=== PATIENT | male | born 1945 | race Hispanic/Latino ===

== ENCOUNTER → 2017-12-18 | Outpatient (CLI) | payer MEDICARE ==
[~2017-12-18] MED LIST: CELEBREX100 MG PO; CODEINE SULFATE30 MG PO; DEXILANT60 MG PO; FINASTERIDE5 MG PO; FLOMAX0.4 MG PO; IBUPROFEN PO; LEVOTHYROXINE100 MC1 PO; LISINOPRIL10 MG PO; MECLIZINE HCL12.5 MG PO; METFORMIN HCL500 MG PO; NAPROXEN250 MG PO; NAPROXEN500 MG PO; OMEPRAZOLE20 MG PO; OMEPRAZOLE40 MG PO; PRAVASTATIN SOD40 MG PO; SYNTHROID100 MCG PO
--- NOTE | 2017-12-18 08:56 | Diagnostic Imaging Report ---
PROCEDURE: CT ABDOMEN AND PELVIS WITHOUT CONTRAST TECHNIQUE: The abdomen and pelvis were scanned utilizing a multidetector helical scanner from the diaphragm to the lesser trochanter. No oral contrast was administered. No IV contrast was administered per stone protocol. Coronal and sagittal multiplanar reformations were obtained. RADIATION DOSE: DLP 596 mGy-cm COMPARISON: CT Abdomen/Pelvis 06/23/15. INDICATIONS: RIGHT FLANK PAIN, POST FALL 3 WEEKS AGO. STONE ON OUTSIDE SCAN FINDINGS: ABSENCE OF INTRAVENOUS CONTRAST DECREASES SENSITIVITY FOR DETECTION OF FOCAL LESIONS AND VASCULAR PATHOLOGY. LOWER THORAX: Small right-sided Bochdalek hernia. Lung bases are clear. Coronary atherosclerosis. HEPATOBILIARY: No focal hepatic lesions. No biliary ductal dilatation. SPLEEN: No splenomegaly. PANCREAS: No focal masses or ductal dilatation. ADRENALS: No adrenal nodules. 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 As before, there are 2 adjacent 5-6 mm stones in the collecting system of the right moiety (series 3, image 75; >1000 HU suggestive of calcium stones). No evidence of left-sided stone. No evidence of ureteral or bladder stone. No evidence of hydronephrosis or mass lesion. PELVIC ORGANS/BLADDER: Prostatomegaly is again noted. PERITONEUM / RETROPERITONEUM: No free air or fluid. LYMPH NODES: No lymphadenopathy. VESSELS: Atherosclerotic calcifications of the abdominal aorta and branch vessels. GI TRACT: No distention or wall thickening. Normal appendix. BONES AND SOFT TISSUES: Degenerative changes are again noted. Fat containing right inguinal hernia. Post surgical changes in the left inguinal region, likely from prior repair. IMPRESSION: No acute findings in the abdomen or pelvis. Horseshoe kidney with similar appearance of 5-6 mm non-obstructing stones in the right sided moiety. No evidence of ureteral or bladder stone. Prostatomegaly without hydronephrosis. Dictated by: ALBIN PARADA M.D. on 12/18/2017 at 9:00 Electronically approved by: ALBIN PRAADA M.D. on 12/18/2017 at 9:00
== END ==
LOC: CT 07:39
PROVIDERS: ATTEND Urology
DX: N20.0 Calculus of kidney (principal)
CPT/HCPCS: 74176

== ENCOUNTER → 2018-01-22 | Outpatient (CLI) | payer MEDICARE ==
--- NOTE | 2018-01-22 15:47 | Diagnostic Imaging Report ---
EXAM: XR CHEST 2 VIEWS DATE: 01/22/2018 2:18 PM INDICATION: Pain COMPARISON: CT abdomen 12/18/2017 FINDINGS: Lines and Tubes: None Heart and Mediastinum: No acute cardiomediastinal findings. Mild aortic vascular calcifications present. Lungs and Pleura: Atelectasis lung bases. No pneumothorax or focal consolidation. Bones and Soft Tissues: Right lower rib fractures as seen on previous abdominal CT. IMPRESSION: 1. Subacute right rib fractures. 2. Atelectasis lung bases. Signed by: Dr. Flakito Joyce MD on 01/22/2018 3:44 PM
== END ==
LOC: RAD 14:13
PROVIDERS: ATTEND Internal Medicine
DX: R07.89 Other chest pain (principal); W18.39XA Other fall on same level, initial encounter
CPT/HCPCS: 71046

== ENCOUNTER 2018-02-08 01:41 | Emergency (ER) | payer MEDICARE ==
[~2018-02-08] VITALS: Ht 172.7 cm; Wt 84.4 kg
[2018-02-08] MEDS ORDERED: ACETAMINOPHEN 325 MG TAB PO ONE (02:00)
[2018-02-08] MEDS ORDERED: SODIUM CHLORIDE 0.9% 1000ML 1,000 ML IV ONE (02:00)
[2018-02-08 02:33] LABS: BASOPHILS % 0.3 % (0.0-1.0); EOSINOPHILS # (AUTO) 0.1 (0.0-0.4); EOSINOPHILS % 0.5 % (0.0-6.0); HEMOGLOBIN 14.4 g/dL (14.0-18.0); LYMPHOCYTES # (AUTO) 0.8 (1.0-3.2); LYMPHOCYTES % 6.2 % (18.0-39.1); MEAN CORPUSCULAR HEMOGLOBIN 30.5 pg (28-32); MEAN CORPUSCULAR HGB CONC 35.1 g/dL (31-35); MEAN CORPUSCULAR VOLUME 86.9 fL (81-99); MONOCYTES # (AUTO) 0.9 (0.2-0.8); MONOCYTES % 6.5 % (4.4-11.3); NEUTROPHILS # (AUTO) 11.4 (2.1-6.9); NEUTROPHILS % 86.2 % (38.7-80.0); PLATELET COUNT 155 x10e3/uL (140-360); RED BLOOD COUNT 4.72 x10e6/uL (4.3-5.7); RED CELL DISTRIBUTION WIDTH 12.5 % (11.7-14.4)
[2018-02-08 02:54] LABS: ALANINE AMINOTRANSFERASE 16 IU/L (0-55); ALBUMIN 4.2 g/dL (3.5-5.0); ALBUMIN/GLOBULIN RATIO 1.8 (0.8-2.0); ALKALINE PHOSPHATASE 56 IU/L (40-150); ANION GAP 16.1 mmol/L (8-16); BLOOD UREA NITROGEN 12 mg/dL (7-26); BUN/CREATININE RATIO 12 (6-25); CALCIUM 9.3 mg/dL (8.4-10.2); CARBON DIOXIDE 22 mmol/L (22-29); CHLORIDE 104 mmol/L (98-107); CREATININE, SERUM 0.98 mg/dL (0.72-1.25); EST GLOMERULAR FILTRATION RATE > 60 ML/MIN (60-); GLUCOSE 174 mg/dL (74-118); POTASSIUM 4.1 mmol/L (3.5-5.1); SODIUM 138 mmol/L (136-145)
[2018-02-08 03:15] LABS: CLARITY,URINE CLOUDY (CLEAR); COLOR,URINE AMBER (YELLOW)
[2018-02-08 03:16] LABS: BILIRUBIN,URINE 1+ (NEGATIVE); KETONES,URINE TRACE (NEGATIVE); LEUKOCYTE ESTERASE ,URINE 2+ (NEGATIVE); NITRITE,URINE POSITIVE (NEGATIVE); PROTEIN,URINE DIPSTICK 3+ (NEGATIVE); URINE UROBILINOGEN 4 mg/dL (0.2 - 1)
[2018-02-08 03:24] LABS: BACTERIA,URINE MANY /HPF; EPITHELIAL CELLS,URINE FEW /LPF; RBC,URINE >50 /HPF (0-5); WBC,URINE (MAN) >50 /HPF (0-5)
[2018-02-08 03:25] LABS: RENAL EPITHELIAL CELLS,URINE FEW
[2018-02-08] MEDS ORDERED: CEFTRIAXONE SOD 1 GM VIAL IV ONE (03:30)
--- NOTE | 2018-02-08 03:30 | Diagnostic Imaging Report ---
EXAM: CHEST SINGLE (PORTABLE), AP 1 view INDICATION: Urine color abnormal, pain in groin COMPARISON: PA and lateral view of the chest January 22, 2018 FINDINGS: LINES/TUBES: None LUNGS: No consolidations or edema. PLEURA: No effusions or pneumothorax. HEART AND MEDIASTINUM: Normal size and contour. BONES AND SOFT TISSUES: No acute findings. IMPRESSION: No acute thoracic abnormality. Signed by: Dr. Keri Ludwig M.D. on 02/08/2018 2:51 AM
[2018-02-08 03:44] VITALS: BP 119/69
== END 2018-02-08 03:53 | disposition home or self-care (01) ==
LOC: ER 01:41
DX: N30.91 Cystitis, unspecified with hematuria (principal); I10 Essential (primary) hypertension; E03.9 Hypothyroidism, unspecified; Z87.442 Personal history of urinary calculi
CPT/HCPCS: 36415; 71045; 80053; 81001; 83605; 85025; 87040; 87086; 87186; 99284; J0696; J7030

== ENCOUNTER 2018-02-10 19:05 | Emergency (ER) | payer MEDICARE ==
[~2018-02-10] VITALS: Ht 172.7 cm; Wt 84.4 kg
[2018-02-10] MEDS ORDERED: LIDOCAINE JELLY 2% 10ML URO-JET ONE (20:05)
[2018-02-10] MEDS ORDERED: LIDOCAINE JELLY 2% 10ML URO-JET TOP ONE (20:15)
[2018-02-10 20:33] LABS: BILIRUBIN,URINE NEGATIVE (NEGATIVE); CLARITY,URINE CLEAR (CLEAR); COLOR,URINE YELLOW (YELLOW); KETONES,URINE NEGATIVE (NEGATIVE); LEUKOCYTE ESTERASE ,URINE NEGATIVE (NEGATIVE); NITRITE,URINE NEGATIVE (NEGATIVE); PROTEIN,URINE DIPSTICK NEGATIVE (NEGATIVE); URINE UROBILINOGEN 0.2 mg/dL (0.2 - 1)
[2018-02-10 20:43] LABS: AMORPHOUS SEDIMENT,URINE FEW (FEW); BACTERIA,URINE FEW /HPF; EPITHELIAL CELLS,URINE FEW /LPF; TRANSITIONAL EPI CELLS,URINE RARE; WBC,URINE (MAN) 0-5 /HPF (0-5)
[2018-03-09] MEDS ORDERED: AMITIZA24 MCG PO (17:12)
[2018-03-09] MEDS ORDERED: AMARYL2 MG PO (17:12)
[2018-03-09] MEDS ORDERED: TYLENOL WITH C1 EACH PO (17:13)
[2018-03-09] MEDS ORDERED: LEVAQUIN500 MG PO (17:13)
--- OUTSIDE RECORDS SUMMARY | 2018-03-12 06:01 | XMS REPORT | Continuity of Care Document ---
Author Author [facility] Organization [facility] Address [address] [place] [address] Phone Unavailable Care Team Providers Care Reflow Operator Name Role Phone NETO YUNG MD PCP Insurance Providers Guarantor Aashish Huerta Address [address] [place] [address] Email NONE Payer Medicare A & B Policy Number [id number] Subscriber's Name Aashish Huerta Relationship 18 Self / Same As Patient Effective Date 12 Advance Directives Directive Response Recorded Date/Time Does the patient have an advance directive? No 08/03/15 2:02am If yes, is advance directive on file with [facility]? No 08/03/15 2:02am If not on file with [facility] will patient provide a copy? No 12/18/17 7:38am Do you have a Directive to Physician? No 02/08/18 2:06am Do you have a Medical Power of [employer]itness And Wellness Director? No 02/08/18 2:06am Do you have an out of hospital Do Not Resuscitate Order? No 02/08/18 2:06am Do you have any special needs we should be aware of? No 02/08/18 2:06am Do you have a support person here with you today? Yes 02/08/18 2:06am Did patient receive Notice of Privacy Practices? Yes 02/08/18 2:06am Did patient receive patient rights and responsibilities? Yes 02/08/18 2:06am Problems Medical Problem Onset Date Status Constipation 07/31/2015 Acute UTI (urinary tract infection) 07/31/2015 Acute Medications Current Home Medications Medication Dose Units Route Directions Days Qty Instructions Start Date Celecoxib (Celebrex*) 100 Mg Capsule 200 Mg Oral Daily 30 Cap Dexlansoprazole (Dexilant) 60 Mg Cap.mp 60 Mg Oral Daily THERAPEUTIC INTERCHANGE WITH PROTONIX PER [facility] Levothyroxine Sodium (Synthroid) 100 Mcg Tab 100 Mcg Oral Daily Lisinopril 10 Mg Tablet 10 Mg Oral Daily 30 Tab Meclizine Hcl 12.5 Mg Tablet 12.5 Mg Oral Daily as needed for Dizziness Omeprazole 20 Mg Capsule. 20 Mg Oral Twice A Day Pravastatin Sodium 40 Mg Tablet 40 Mg Oral Daily Tamsulosin Hcl (Flomax*) 0.4 Mg Cap 0.4 Mg Oral Bedtime 30 Cap Past Home Medications Medication Directions Ordered Status Codeine Sulfate 30 Mg Tab, 30 Mg Oral Daily Discontinued Finasteride 5 Mg Tablet, 5 Mg Oral Daily Discontinued Ibuprofen , 800 Mg Oral Three Times A Day Discontinued Levothyroxine Sodium 100 Mcg Vial, 100 Mcg Oral Daily Discontinued Metformin Hcl 500 Mg Tablet, 500 Mg Oral Twice A Day Discontinued Naproxen 500 Mg Tablet, 500 Mg Oral Twice A Day Discontinued Naproxen 250 Mg Tablet, 500 Mg Oral Twice A Day Discontinued Omeprazole 40 Mg Capsule.dr, 20 Mg Oral Twice A Day Discontinued Social History Social History Problem Response Recorded Date/Time Onset Date Status Hx Psychiatric Problems No 08/03/2015 2:02am Not Applicable Not Applicable Hx Eating Disorder No 08/03/2015 2:02am Not Applicable Not Applicable Hx Substance Use Disorder No 08/03/2015 2:02am Not Applicable Not Applicable Hx Depression No 08/03/2015 2:02am Not Applicable Not Applicable Hx Alcohol Use No 08/03/2015 2:02am Not Applicable Not Applicable Hx Substance Use Treatment No 08/03/2015 2:02am Not Applicable Not Applicable Hx Physical Abuse No 08/03/2015 2:02am Not Applicable Not Applicable Smoking Status Start Date Stop Date Never Smoker Hospital Discharge Instructions No hospital discharge instruction information available. Plan of Care Discharge Date 02/08/18 3:53am Disposition HOME, SELF-CARE Condition at Discharge Stable Instructions/Education Provided Hematuria - Male Urinary Tract Infection - Men Prescriptions See Medication Section Additional Instructions/Education ALTERNATE TYLENOL (ACETAMINOPHEN) AND MOTRIN (IBUPROFEN) FOR TEMPERATURE GREATER THAN 100.4 DEGREES ORALLY. TAKE ACCORDING TO LABEL INSTRUCTIONS. DRINK PLENTY OF FLUIDS. TAKE MEDICATIONS PRESCRIBED. FOLLOW UP WITH A UROLOGIST IN FOUR DAYS IF NOT BETTER. Functional Status No functional status information available. Allergies, Adverse Reactions, Alerts No known allergies. Immunizations No immunization information available. Vital Signs Acute Vital Signs Vital Response Date/Time Temperature (Fahrenheit) 98.9 degrees F (97.6 - 99.5) 02/08/2018 3:44am Pulse Pulse Rate (adult) 80 bpm (60 - 90) 02/08/2018 3:44am Respiratory Rate 18 bpm (12 - 24) 02/08/2018 3:44am Blood Pressure 119/69 mm Hg 02/08/2018 3:44am Height 5 ft 8 in 02/08/2018 1:54am Weight 186 lb 02/08/2018 1:54am Body Mass Index 28.3 kg/m^2 02/08/2018 1:54am Results Laboratory Results Test Name Result Units Flags Reference Collection Date/Time Result Date/ Time Comments White Blood Count 13.17 x10e3/uL H 4.8-10.8 02/08/2018 2:052017 2:34am Red Blood Count 4.72 x10e6/uL 4.3-5.7 02/08/2018 2:0502/08/2018 2: 34am Hemoglobin 14.4 g/dL 14.0-18.0 02/08/2018 2:0502/08/2018 2:34am Hematocrit 41.0 % 38.2-49.6 02/08/2018 2:0502/08/2018 2:34am Mean Corpuscular Volume 86.9 fL 81-99 02/08/2018 2:0502/08/2018 2: 34am Mean Corpuscular Hemoglobin 30.5 pg 28-32 02/08/2018 2:0502/08/2018 2:34am Mean Corpuscular Hemoglobin Concent 35.1 g/dL H 31-35 02/08/2018 2:0502/08/2018 2:34am Red Cell Distribution Width 12.5 % 11.7-14.4 02/08/2018 2:2017 2:34am Platelet Count 155 x10e3/uL 140-360 02/08/2018 2:02/08/2018 2: 34am Neutrophils (%) (Auto) 86.2 % H 38.7-80.0 02/08/2018 2:02/08/2018 2 :34am Lymphocytes (%) (Auto) 6.2 % L 18.0-39.1 02/08/2018 2:0502/08/2018 2: 34am Monocytes (%) (Auto) 6.5 % 4.4-11.3 02/08/2018 2:02/08/2018 2: 34am Eosinophils (%) (Auto) 0.5 % 0.0-6.0 02/08/2018 2:02/08/2018 2: 34am Basophils (%) (Auto) 0.3 % 0.0-1.0 02/08/2018 2:02/08/2018 2:34am IM GRANULOCYTES % 0.3 % 0.0-1.0 02/08/2018 2:02/08/2018 2:34am Neutrophils # (Auto) 11.4 H 2.1-6.9 02/08/2018 2:02/08/2018 2: 34am Lymphocytes # (Auto) 0.8 L 1.0-3.2 02/08/2018 2:02/08/2018 2: 34am Monocytes # (Auto) 0.9 H 0.2-0.8 02/08/2018 2:02/08/2018 2:34am Eosinophils # (Auto) 0.1 0.0-0.4 02/08/2018 2:02/08/2018 2:34am Basophils # (Auto) 0.0 0.0-0.1 02/08/2018 2:02/08/2018 2:34am Absolute Immature Granulocyte (auto 0.04 x10e3/uL 0-0.1 02/08/2018 2: 0502/08/2018 2:34am Urine Color VALENTIN H YELLOW 02/08/2018 3:00am 02/08/2018 3:16am Urine Clarity CLOUDY H CLEAR 02/08/2018 3:00am 02/08/2018 3:16am Urine Specific [place] 1.025 1.010-1.025 02/08/2018 3:00am 2017 3:16am Urine pH 7 5 - 7 02/08/2018 3:00am 02/08/2018 3:16am Urine Leukocyte Esterase 2+ H NEGATIVE 02/08/2018 3:00am 02/08/2018 3: 16am Urine Nitrite POSITIVE H NEGATIVE 02/08/2018 3:00am 02/08/2018 3:16am Urine Protein 3+ H NEGATIVE 02/08/2018 3:00am 02/08/2018 3:16am Urine Glucose (UA) NEGATIVE NEGATIVE 02/08/2018 3:00am 02/08/2018 3: 16am Urine Ketones TRACE H NEGATIVE 02/08/2018 3:00am 02/08/2018 3:16am Urine Urobilinogen 4 mg/dL H 0.2 - 1 02/08/2018 3:00am 02/08/2018 3: 16am Urine Bilirubin 1+ H NEGATIVE 02/08/2018 3:00am 02/08/2018 3:16am Confirmatory test currently unavailable. False positive results may occur. Urine Blood 4+ H NEGATIVE 02/08/2018 3:00am 02/08/2018 3:16am Urine WBC >50 /HPF H 0-5 02/08/2018 3:00am 02/08/2018 3:25am Urine RBC >50 /HPF H 0-5 02/08/2018 3:00am 02/08/2018 3:25am Urine Bacteria MANY /HPF H NONE 02/08/2018 3:00am 02/08/2018 3:25am Urine Epithelial Cells FEW /LPF NONE 02/08/2018 3:00am 02/08/2018 3: 25am Urine Renal Epithelial Cells FEW H NONE 02/08/2018 3:00am 02/08/2018 3 :25am Sodium Level 138 mmol/L 136-145 02/08/2018 2:05am 02/08/2018 3:17am Potassium Level 4.1 mmol/L 3.5-5.1 02/08/2018 2:05am 02/08/2018 3:17am Chloride Level 104 mmol/L 98-107 02/08/2018 2:02/08/2018 3:17am Carbon Dioxide Level 22 mmol/L 22-29 02/08/2018 2:02/08/2018 3: 17am Anion Gap 16.1 mmol/L H 8-16 02/08/2018 2:02/08/2018 3:17am Blood Urea Nitrogen 12 mg/dL 7-26 02/08/2018 2:02/08/2018 3:17am Creatinine 0.98 mg/dL 0.72-1.25 02/08/2018 2:02/08/2018 3:17am BUN/Creatinine Ratio 12 6-25 02/08/2018 2:02/08/2018 3:17am Estimat Glomerular Filtration Rate > 60 ML/MIN 60- 02/08/2018 2: 3:17am Ranges were taken from the National Kidney Disease Education Program and the National Kid[employer] literature. Reference ranges: 60 or greater: Normal 16-59 (for 3 consecutive months): Chronic kidney disease 15 or less: Kidney failure Glucose Level 174 mg/dL H 74-118 02/08/2018 2:02/08/2018 3:17am Calcium Level 9.3 mg/dL 8.4-10.2 02/08/2018 2:02/08/2018 3:17am Lactic Acid Level 8.4 MG/DL 4.5-19.8 02/08/2018 2:02/08/2018 2: 51am Total Bilirubin 1.1 mg/dL 0.2-1.2 02/08/2018 2:02/08/2018 3:17am Aspartate Amino Transf (AST/SGOT) 17 IU/L 5-34 02/08/2018 2:2017 3:17am Alanine Aminotransferase (ALT/SGPT) 16 IU/L 0-55 02/08/2018 2:07/2017 3:17am Total Protein 6.5 g/dL 6.5-8.1 02/08/2018 2:02/08/2018 3:17am Albumin 4.2 g/dL 3.5-5.0 02/08/2018 2:02/08/2018 3:17am Globulin 2.3 g/dL 2.3-3.5 02/08/2018 2:05am 02/08/2018 3:17am Albumin/Globulin Ratio 1.8 0.8-2.0 02/08/2018 2:05am 02/08/2018 3: 17am Alkaline Phosphatase 56 IU/L 40-150 02/08/2018 2:05am 02/08/2018 3: 17am Procedures Procedure Status Date Provider(s) CT of abdomen and pelvis without contrast Active 12/18/17 BERHANE REYES MD X-ray of chest, two views Active 01/22/18 NETO YUNG MD Encounters Encounter Location Arrival/Admit Date Discharge/Depart Date Attending Provider Departed Emergency Room [facility] 02/08/18 1:41am 3:53am CRISTOPHER MUÑIZ MD Registered Clinic [facility] 01/22/18 2:13pm NETO YUNG MD Registered Clinic [facility] 12/18/17 7:39am BERHANE REYES MD
== END 2018-02-10 22:05 | disposition home or self-care (01) ==
LOC: ER 19:05
DX: R33.9 Retention of urine, unspecified (principal); N40.1 Benign prostatic hyperplasia with lower urinary tract symptoms
CPT/HCPCS: 51700; 81001; 87086; 99282

== ENCOUNTER → 2018-06-25 | Outpatient (CLI) | payer MEDICARE ==
[~2018-06-25] MED LIST changes: +AMARYL2 MG PO; +AMITIZA24 MCG PO; +LEVAQUIN500 MG PO; +TYLENOL WITH C1 EACH PO
--- NOTE | 2018-06-25 14:53 | Diagnostic Imaging Report ---
Exam: Abdominal film Clinical History: Calculus of kidney Comparison: None. DISCUSSION: Horseshoe kidney known from prior study. A 6 mm and 6 mm adjacent calculi right of L2-L3. No visualized left renal calculi. Nonobstructive gas pattern. IMPRESSION: 2 adjacent 6 mm calculi overlying the right kidney. Signed by: Dr. Corwin Perez M.D. on 06/25/2018 2:49 PM
== END ==
LOC: RAD 14:03
PROVIDERS: ATTEND Urology
DX: N20.0 Calculus of kidney (principal)
CPT/HCPCS: 74018

== ENCOUNTER → 2019-04-15 | Outpatient (CLI) | payer MEDICARE ==
--- NOTE | 2019-04-15 16:02 | Diagnostic Imaging Report ---
Left knee, 3 views. History: Lateral left knee pain. Findings: Vascular classifications are present. There is no evidence of a joint effusion. Bone mineralization is normal. There is no evidence of fracture or dislocation. There are no lytic or sclerotic lesions. The joint spaces are within normal limits. IMPRESSION: Normal left knee. Signed by: Osbaldo Burch on 04/15/2019 3:59 PM
--- NOTE | 2019-04-15 16:07 | Diagnostic Imaging Report ---
CT the pelvis, 04/15/2019. History: Bilateral hip and groin pain. Comparison: <None available>. Technique: Multidetector imaging of the pelvis was performed from the level of the iliac crests to the proximal femurs without administration of contrast. RADIATION DOSE: Total DLP: 303 mGy*cm Dose modulation, iterative reconstruction, and/or weight based adjustment of the mA/kV was utilized to reduce the radiation dose to as low as reasonably achievable. Discussion: Advanced degenerative changes are present within the lumbosacral spine. Bilateral hip DJD is present, left worse than right, with complete loss of superior joint space on the left with multiple subchondral cysts and osteophytes. The bladder and visualized bowel are unremarkable. The prostate is enlarged measuring 6 cm in transverse diameter. A small fat-containing right inguinal hernia is present. There is no evidence of free fluid or adenopathy. IMPRESSION: 1. 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 2. Prostatomegaly. 3. Right inguinal hernia. Signed by: Osbaldo Burch on 04/15/2019 4:04 PM
== END ==
LOC: CT 14:54
PROVIDERS: ATTEND Internal Medicine
DX: M25.552 Pain in left hip (principal); M25.551 Pain in right hip; M16.0 Bilateral primary osteoarthritis of hip; R10.31 Right lower quadrant pain; M25.562 Pain in left knee; K40.90 Unilateral inguinal hernia, without obstruction or gangrene, not specified as recurrent; N40.0 Benign prostatic hyperplasia without lower urinary tract symptoms
CPT/HCPCS: 72192

== ENCOUNTER → 2020-08-03 | Outpatient (CLI) | payer MEDICARE | LOC: RAD 13:16 | PROVIDERS: ATTEND Internal Medicine | DX: R06.02 Shortness of breath (principal) | CPT/HCPCS: 71046 ==

== ENCOUNTER → 2020-09-04 | Outpatient (CLI) | payer MEDICARE | LOC: CT 11:22 | PROVIDERS: ATTEND Internal Medicine | DX: I70.0 Atherosclerosis of aorta (principal) | CPT/HCPCS: 71250 ==

== ENCOUNTER → 2020-10-11 | Outpatient (CLI) | payer MEDICARE | LOC: RAD 16:20 | PROVIDERS: ATTEND Urology | DX: N20.0 Calculus of kidney (principal) | CPT/HCPCS: 74018 ==

== ENCOUNTER → 2021-04-02 | Outpatient (CLI) | payer MEDICARE | LOC: CT 15:43 | PROVIDERS: ATTEND Urology | DX: N20.0 Calculus of kidney (principal) | CPT/HCPCS: 74176 ==

== ENCOUNTER → 2021-05-22 | Outpatient (CLI) | payer MEDICARE | LOC: RAD 12:42 | PROVIDERS: ATTEND Urology | DX: N20.0 Calculus of kidney (principal) | CPT/HCPCS: 74018 ==

== ENCOUNTER → 2021-07-13 | Day surgery (SDC) | payer MEDICARE ==
[2021-07-11 11:30] LABS: BASOPHILS % 0.5 % (0.0-1.0); EOSINOPHILS # (AUTO) 0.1 (0.0-0.4); HEMATOCRIT 42.2 % (38.2-49.6); HEMOGLOBIN 14.4 g/dL (14.0-18.0); LYMPHOCYTES % 16.4 % (18.0-39.1); MEAN CORPUSCULAR HEMOGLOBIN 30.8 pg (28-32); MEAN CORPUSCULAR HGB CONC 34.1 g/dL (31-35); MEAN CORPUSCULAR VOLUME 90.2 fL (81-99); MONOCYTES # (AUTO) 0.4 (0.2-0.8); MONOCYTES % 6.7 % (4.4-11.3); NEUTROPHILS # (AUTO) 4.6 (2.1-6.9); NEUTROPHILS % 75.2 % (38.7-80.0); PLATELET COUNT 160 x10e3/uL (140-360); RED BLOOD COUNT 4.68 x10e6/uL (4.3-5.7)
[2021-07-11 12:24] LABS: CALCIUM 9.1 mg/dL (8.4-10.2); CREATININE, SERUM 0.89 mg/dL (0.72-1.25)
[~2021-07-13] MED LIST changes: +BELLADONNA/OPIUM 30 MG SUPP RC ONE; +CEFTRIAXONE 1 GM VIAL ONE; +DEXAMETHASONE SOD PHOS INJ 4 MG/ML SDV ONE; +EPHEDRINE SULFATE INJ 50 MG/ML VIAL ONE; +FENTANYL CITRATE/PF 100MCG/2 ML INJ ONE; +IOPAMIDOL 300MG/ML 50ML INFUS..BTL IV ONE; +JANUVIA50 MG PO; +LIDOCAINE HCL 2% LOCAL INJ 5 ML SDV VIAL INJ ONE; +ONDANSETRON HCL INJ 2MG/ML 2ML 2 MG/ML VIAL ONE; +PHENYLEPHRINE HCL 1% 10 MG/ML VIAL ONE; +POVIDONE IODINE 0.05% 0.05 % ML PO ONE; +PROPOFOL IV EMULSION 10 MG/ML 20 ML VIAL ONE; +SEVOFLURANE INHAL SOLN 250 ML PEN BTL ONE; +ULTRAM 50MG50 MG PO
[2021-07-13 12:32] VITALS: BP 136/84
== END | disposition home or self-care (01) ==
LOC: OR 08:00
PROVIDERS: ATTEND Urology
DX: N20.0 Calculus of kidney (principal); Q63.1 Lobulated, fused and horseshoe kidney; N40.1 Benign prostatic hyperplasia with lower urinary tract symptoms; N13.8 Other obstructive and reflux uropathy; N32.89 Other specified disorders of bladder; N41.9 Inflammatory disease of prostate, unspecified; I10 Essential (primary) hypertension; E78.5 Hyperlipidemia, unspecified; K21.9 Gastro-esophageal reflux disease without esophagitis; H91.90 Unspecified hearing loss, unspecified ear; M25.559 Pain in unspecified hip; E07.9 Disorder of thyroid, unspecified; Z01.810 Encounter for preprocedural cardiovascular examination; Z01.812 Encounter for preprocedural laboratory examination; Z01.818 Encounter for other preprocedural examination; Z20.822 Contact with and (suspected) exposure to COVID-19; Z79.899 Other long term (current) drug therapy
CPT/HCPCS: 36415; 50590; 52332; 74018; 80048; 83970; 84550; 85025; 93005; C1758; C2617; J0696; J1100; J2001; J2370; J2405; J2704; J3010; Q9967; U0002

== ENCOUNTER → 2021-09-07 | Day surgery (SDC) | payer MEDICARE ==
[~2021-09-07] MED LIST changes: -BELLADONNA/OPIUM 30 MG SUPP RC ONE; -DEXAMETHASONE SOD PHOS INJ 4 MG/ML SDV ONE; -EPHEDRINE SULFATE INJ 50 MG/ML VIAL ONE; -FENTANYL CITRATE/PF 100MCG/2 ML INJ ONE; -IOPAMIDOL 300MG/ML 50ML INFUS..BTL IV ONE; -PHENYLEPHRINE HCL 1% 10 MG/ML VIAL ONE
[2021-09-07 07:43] LABS: BASOPHILS % 0.5 % (0.0-1.0); EOSINOPHILS # (AUTO) 0.1 (0.0-0.4); EOSINOPHILS % 1.6 % (0.0-6.0); HEMATOCRIT 38.2 % (38.2-49.6); HEMOGLOBIN 13.5 g/dL (14.0-18.0); LYMPHOCYTES # (AUTO) 1.1 (1.0-3.2); LYMPHOCYTES % 19.8 % (18.0-39.1); MEAN CORPUSCULAR HEMOGLOBIN 31.3 pg (28-32); MEAN CORPUSCULAR HGB CONC 35.3 g/dL (31-35); MEAN CORPUSCULAR VOLUME 88.4 fL (81-99); MONOCYTES # (AUTO) 0.5 (0.2-0.8); MONOCYTES % 8.4 % (4.4-11.3); NEUTROPHILS # (AUTO) 3.9 (2.1-6.9); NEUTROPHILS % 69.5 % (38.7-80.0); PLATELET COUNT 128 x10e3/uL (140-360); RED BLOOD COUNT 4.32 x10e6/uL (4.3-5.7); RED CELL DISTRIBUTION WIDTH 12.7 % (11.7-14.4)
[2021-09-07 08:08] LABS: ANION GAP 9.9 mmol/L (8-16); CALCIUM 8.6 mg/dL (8.4-10.2); CREATININE, SERUM 0.86 mg/dL (0.72-1.25); POTASSIUM 3.9 mmol/L (3.5-5.1)
[2021-09-07 12:37] VITALS: BP 161/82
== END | disposition home or self-care (01) ==
LOC: OR 06:18
PROVIDERS: ATTEND Urology
DX: N20.0 Calculus of kidney (principal); Z96.0 Presence of urogenital implants; Q63.1 Lobulated, fused and horseshoe kidney; N40.0 Benign prostatic hyperplasia without lower urinary tract symptoms; M06.9 Rheumatoid arthritis, unspecified; M19.90 Unspecified osteoarthritis, unspecified site; I10 Essential (primary) hypertension; E78.5 Hyperlipidemia, unspecified; E03.9 Hypothyroidism, unspecified; K21.9 Gastro-esophageal reflux disease without esophagitis; Z20.822 Contact with and (suspected) exposure to COVID-19; Z79.899 Other long term (current) drug therapy
CPT/HCPCS: 36415; 50590; 71046; 74018; 80048; 84550; 85025; J0696; J2001; J2405; J2704; U0002

== ENCOUNTER → 2021-12-14 | Day surgery (SDC) | payer MEDICARE ==
[~2021-12-14] MED LIST changes: +BELLADONNA/OPIUM 30 MG SUPP RC ONE; +CEFEPIME HCL 1 GM VIAL ONE; -CEFTRIAXONE 1 GM VIAL ONE; +CIPRO250 MG PO; +DEXAMETHASONE SOD PHOS INJ 4 MG/ML SDV ONE; +FENTANYL CITRATE/PF 100MCG/2 ML INJ ONE; +GENTAMICIN 80MG/NS 100 ML 200 ML IV ONE; +IOPAMIDOL 610MG/1ML 300 MG/ML VIAL IV ONE; +PHENYLEPHRINE HCL 1% 10 MG/ML VIAL ONE
[2021-12-14 06:50] LABS: BASOPHILS % 0.7 % (0.0-1.0); EOSINOPHILS # (AUTO) 0.1 (0.0-0.4); EOSINOPHILS % 1.4 % (0.0-6.0); HEMATOCRIT 42.9 % (38.2-49.6); HEMOGLOBIN 14.7 g/dL (14.0-18.0); LYMPHOCYTES # (AUTO) 1.3 (1.0-3.2); LYMPHOCYTES % 21.7 % (18.0-39.1); MEAN CORPUSCULAR HEMOGLOBIN 31.7 pg (28-32); MEAN CORPUSCULAR HGB CONC 34.3 g/dL (31-35); MEAN CORPUSCULAR VOLUME 92.5 fL (81-99); MONOCYTES # (AUTO) 0.5 (0.2-0.8); MONOCYTES % 9.3 % (4.4-11.3); NEUTROPHILS # (AUTO) 3.9 (2.1-6.9); NEUTROPHILS % 66.6 % (38.7-80.0); PLATELET COUNT 150 x10e3/uL (140-360); RED BLOOD COUNT 4.64 x10e6/uL (4.3-5.7); RED CELL DISTRIBUTION WIDTH 12.6 % (11.7-14.4)
[2021-12-14 07:10] LABS: ANION GAP 14.2 mmol/L (8-16); BLOOD UREA NITROGEN 11 mg/dL (7-26); BUN/CREATININE RATIO 13 (6-25); CALCIUM 9.2 mg/dL (8.4-10.2); CARBON DIOXIDE 27 mmol/L (22-29); CHLORIDE 104 mmol/L (98-107); CREATININE, SERUM 0.85 mg/dL (0.72-1.25); GLUCOSE 138 mg/dL (74-118); POTASSIUM 4.2 mmol/L (3.5-5.1); SODIUM 141 mmol/L (136-145)
[2021-12-14 10:40] VITALS: BP 165/94
== END | disposition home or self-care (01) ==
LOC: OR 05:30
PROVIDERS: ATTEND Urology
DX: N20.0 Calculus of kidney (principal); Z46.6 Encounter for fitting and adjustment of urinary device; N40.1 Benign prostatic hyperplasia with lower urinary tract symptoms; N13.8 Other obstructive and reflux uropathy; I70.1 Atherosclerosis of renal artery; Q63.1 Lobulated, fused and horseshoe kidney; N32.89 Other specified disorders of bladder; N28.89 Other specified disorders of kidney and ureter; Z20.822 Contact with and (suspected) exposure to COVID-19; M06.9 Rheumatoid arthritis, unspecified; M19.90 Unspecified osteoarthritis, unspecified site; I10 Essential (primary) hypertension; E78.5 Hyperlipidemia, unspecified; E03.9 Hypothyroidism, unspecified; E11.9 Type 2 diabetes mellitus without complications; K21.9 Gastro-esophageal reflux disease without esophagitis; Z79.899 Other long term (current) drug therapy
CPT/HCPCS: 0223U; 36415; 52346; 74018; 74420; 80048; 82948; 84550; 85025; 93005; C1766; C1769; J0692; J1100; J1580; J2001; J2370; J2405; J2704; J3010; Q9967

== ENCOUNTER → 2022-03-11 | Outpatient (CLI) | payer MEDICARE ==
[~2022-03-11] MED LIST changes: -BELLADONNA/OPIUM 30 MG SUPP RC ONE; -CEFEPIME HCL 1 GM VIAL ONE; -DEXAMETHASONE SOD PHOS INJ 4 MG/ML SDV ONE; -FENTANYL CITRATE/PF 100MCG/2 ML INJ ONE; -GENTAMICIN 80MG/NS 100 ML 200 ML IV ONE; -IOPAMIDOL 610MG/1ML 300 MG/ML VIAL IV ONE; -LIDOCAINE HCL 2% LOCAL INJ 5 ML SDV VIAL INJ ONE; -ONDANSETRON HCL INJ 2MG/ML 2ML 2 MG/ML VIAL ONE; -PHENYLEPHRINE HCL 1% 10 MG/ML VIAL ONE; -POVIDONE IODINE 0.05% 0.05 % ML PO ONE; -PROPOFOL IV EMULSION 10 MG/ML 20 ML VIAL ONE; -SEVOFLURANE INHAL SOLN 250 ML PEN BTL ONE
== END ==
LOC: RAD 12:02
PROVIDERS: ATTEND Urology
DX: N20.0 Calculus of kidney (principal)
CPT/HCPCS: 74018